=== PATIENT | male | born 1975 | race Caucasian/White ===

== ENCOUNTER 2016-12-31 23:49 | Emergency (ER) | payer OTHER ==
[~2016-12-31] VITALS: Ht 180.3 cm; Wt 107.1 kg
[~2016-12-31 23:49] MED LIST: ADVIL,NUPRIN,M200 MG PO; COSENTYX (150 MG/1 M SC; ENBREL50 MG/1 ML SQ; FOLIC ACID1 MG PO; HYDROCODON-ACE1 EAC7 PO; LEVAQUIN750 MG PO; METHOTREXATE2.5 MG PO; NAPROSYN500 MG PO; OTEZLA30 MG PO; PROAIR HFA8.5 GM IH; PSORIASIS OINTMENT TP; VECTICAL100 GM TP; VENTOLIN HFA18 GM IH
[2017-01-01 00:41] LABS: HEMATOCRIT 45.5 % (38.0-50.0); MCH 29.2 PG (29.0-34.0); MCHC 34.5 G/DL (30.0-36.0); MCV 84.7 FL (86-99); MEAN PLAT.VOLUME 9.7 uM^3 (9.0-12.4); PLATELET COUNT 176 K/uL (156-360); RBC DIS.WIDTH-CV 12.9 % (11.8-14.6); RBC DIS.WIDTH-SD 39.6 % (39-53); RED BLOOD COUNT 5.37 M/uL (4.00-5.50); WHITE BLOOD COUNT 6.3 K/uL (4.1-10.2)
[2017-01-01 00:55] LABS: D-DIMER ELISA < 0.15 mg/L FEU (< 0.57)
[2017-01-01 00:56] LABS: CHLORIDE 105 mEq/L (99-109); POTASSIUM 3.8 mEq/L (3.7-5.4); SODIUM 141 mEq/L (136-147)
[2017-01-01 00:58] LABS: GLUCOSE 89 mg/dL (70-99)
[2017-01-01 00:59] LABS: ANION GAP 9 MEQ/L (2-14)
[2017-01-01 01:02] LABS: GFR ESTIMATE (CALCULATED) > 59 mL/min/
[2017-01-01 01:03] LABS: UREA NITROGEN (BUN) 19 mg/dL (9-23)
[2017-01-01 01:06] LABS: TROP-I INTERPRETATION NEGATIVE; TROPONIN-I < 0.01 ng/mL (0.0-0.30)
[2017-01-01 02:21] VITALS: BP 111/54
== END 2017-01-01 02:21 | disposition left against medical advice (07) ==
LOC: EME 23:49
PROVIDERS: Physician Assistant
DX: R07.9 Chest pain, unspecified (principal)
CPT/HCPCS: 71020; 80048; 84484; 85027; 85379; 93005; 99281; 99285

== ENCOUNTER 2017-09-19 10:49 | Emergency (ER) | payer BC ==
[~2017-09-19] VITALS: Ht 180.3 cm; Wt 101.3 kg
[2017-09-19 11:56] LABS: HEMATOCRIT 45.7 % (38.0-50.0); HEMOGLOBIN 16.1 G/DL (12.5-16.6); MCH 29.5 PG (29.0-34.0); MCHC 35.2 G/DL (30.0-36.0); MCV 83.7 FL (86-99); PLATELET COUNT 193 K/uL (156-360); RBC DIS.WIDTH-CV 13.1 % (11.8-14.6); RBC DIS.WIDTH-SD 39.4 % (39-53); RED BLOOD COUNT 5.46 M/uL (4.00-5.50); WHITE BLOOD COUNT 8.6 K/uL (4.1-10.2)
[2017-09-19 12:07] LABS: ALBUMIN 4.3 g/dL (3.2-4.8); CHLORIDE 106 mEq/L (99-109); SODIUM 142 mEq/L (136-147)
[2017-09-19 12:10] LABS: GLUCOSE 118 mg/dL (70-99); TOTAL PROTEIN 7.3 g/dL (6.4-8.3)
[2017-09-19 12:12] LABS: TOTAL BILIRUBIN 0.7 mg/dL (0.0-1.0)
[2017-09-19 12:13] LABS: ALKALINE PHOSPHATASE 54 IU/L (3-129); CREATININE 0.9 mg/dL (0.6-1.3); GFR ESTIMATE (CALCULATED) > 59 mL/min/ (58.99-99999)
[2017-09-19 12:14] LABS: UREA NITROGEN (BUN) 13 mg/dL (9-23)
[2017-09-19 12:15] LABS: AST (GOT) 28 IU/L (2-34)
[2017-09-19 12:16] LABS: ALT (GPT) 29 IU/L (3-49)
[2017-09-19 12:17] LABS: LIPASE 44 U/L (1.0-51.0)
[2017-09-19 13:40] LABS: APPEARANCE CLEAR ((CLEAR)); BILIRUBIN NEGATIVE; BLOOD NEGATIVE; COLOR YELLOW ((YELLOW)); GLUCOSE (STRIP) NEGATIVE; KETONES NEGATIVE; LEUKOCYTES NEGATIVE; NITRITE NEGATIVE; PROTEIN (STRIP) NEGATIVE; SPECIFIC GRAVITY > 1.060 (1.000-1.030); UCUL ADDED? NO; UROBILINOGEN 0.2 MG/DL (0.2-1.0)
[2017-09-19] MEDS ORDERED: PHENERGAN25 MG PR (14:03)
[2017-09-19] MEDS ORDERED: ZOFRAN ODT4 MG PO (14:03)
[2017-09-19] MEDS ORDERED: PRILOSEC20 MG PO (14:03)
[2017-09-19] MEDS ORDERED: ZANTAC150 MG PO (14:03)
[2017-09-19 14:45] VITALS: BP 119/76
== END 2017-09-19 15:22 | disposition home or self-care (01) ==
LOC: EME 10:49
PROVIDERS: Nurse Practitioner Family
DX: K80.20 Calculus of gallbladder without cholecystitis without obstruction (principal); K20.9 Esophagitis, unspecified; L40.50 Arthropathic psoriasis, unspecified; Z98.84 Bariatric surgery status; Z87.891 Personal history of nicotine dependence
CPT/HCPCS: 74177; 76705; 80053; 81003; 83690; 85027; 99281; 99284; J2405; J2765; J3010; J7030

== ENCOUNTER 2017-11-08 13:24 | Emergency (ER) | payer BC ==
[~2017-11-08] VITALS: Ht 180.3 cm; Wt 98.9 kg
[~2017-11-08 13:24] MED LIST changes: +PHENERGAN25 MG PR; +PRILOSEC20 MG PO; +ZANTAC150 MG PO; +ZOFRAN ODT4 MG PO
[2017-11-08 13:57] LABS: HEMATOCRIT 45.4 % (38.0-50.0); HEMOGLOBIN 15.9 G/DL (12.5-16.6); MCH 29.9 PG (29.0-34.0); MCV 85.3 FL (86-99); PLATELET COUNT 178 K/uL (156-360); RBC DIS.WIDTH-CV 13.2 % (11.8-14.6); RBC DIS.WIDTH-SD 40.6 % (39-53); RED BLOOD COUNT 5.32 M/uL (4.00-5.50); WHITE BLOOD COUNT 6.3 K/uL (4.1-10.2)
[2017-11-08 14:06] LABS: ALBUMIN 4.3 g/dL (3.2-4.8); CHLORIDE 106 mEq/L (99-109); POTASSIUM 4.1 mEq/L (3.7-5.4); SODIUM 144 mEq/L (136-147)
[2017-11-08 14:09] LABS: GLUCOSE 116 mg/dL (70-99); TOTAL PROTEIN 7.1 g/dL (6.4-8.3)
[2017-11-08 14:11] LABS: TOTAL BILIRUBIN 2.2 mg/dL (0.0-1.0)
[2017-11-08 14:12] LABS: ALKALINE PHOSPHATASE 66 IU/L (3-129); CREATININE 0.8 mg/dL (0.6-1.3); GFR ESTIMATE (CALCULATED) > 59 mL/min/ (58.99-99999)
[2017-11-08 14:13] LABS: UREA NITROGEN (BUN) 15 mg/dL (9-23)
[2017-11-08 14:14] LABS: AST (GOT) 209 IU/L (2-34)
[2017-11-08 14:15] LABS: ALT (GPT) 215 IU/L (3-49)
[2017-11-08 14:55] LABS: LIPASE 62 U/L (1.0-51.0)
[2017-11-08 15:10] LABS: APPEARANCE CLEAR ((CLEAR)); BILIRUBIN SMALL; BLOOD NEGATIVE; COLOR AMBER ((YELLOW)); GLUCOSE (STRIP) NEGATIVE; KETONES NEGATIVE; LEUKOCYTES NEGATIVE; NITRITE NEGATIVE; PROTEIN (STRIP) 30; SPECIFIC GRAVITY 1.034 (1.000-1.030); UCUL ADDED? NO
[2017-11-08] MEDS ORDERED: ZOFRAN4 MG PO (16:10)
[2017-11-08] MEDS ORDERED: ULTRAM50 MG PO (16:10)
[2017-11-08 16:26] VITALS: BP 102/62
== END 2017-11-08 16:28 | disposition home or self-care (01) ==
LOC: EME 13:24
DX: K80.20 Calculus of gallbladder without cholecystitis without obstruction (principal); R74.0 Nonspecific elevation of levels of transaminase and lactic acid dehydrogenase [LDH]; L40.50 Arthropathic psoriasis, unspecified; E66.01 Morbid (severe) obesity due to excess calories; Z68.30 Body mass index [BMI] 30.0-30.9, adult; Z98.84 Bariatric surgery status
CPT/HCPCS: 76705; 80053; 81003; 83690; 85027; 99281; 99284; J3010